=== PATIENT | male | born 1980 | race Caucasian/White ===

== ENCOUNTER 2017-02-25 19:00 | Inpatient (IN) | payer OTHER ==
--- NOTE | ~2017-02-25 | HP ---
Unit #: [id number] #: [id number] Patient: THADDEUS BROWER [id number] [place] [address] [id number] I MR#: [id number] NAME: THADDEUS BROWER. ROOM: P184 Age: 36 Sex: M Admission Date: 02/26/2017 : 1980 Attending Physician: Christopher Herman M.D. Admitting Physician: Christopher Herman M.D. Primary Care Physician: Generic Doctor Not In System HISTORY AND PHYSICAL HISTORY OF PRESENT ILLNESS Thaddeus is a 36-year-old male admitted on 02/26/2017 to [facility] for detox from heroin. PAST MEDICAL HISTORY Hepatitis C PAST SURGICAL HISTORY None. SOCIAL HISTORY Smokes one pack of cigarettes daily. Denies alcohol use and does report daily use of heroin. He is currently single and homeless. FAMILY HISTORY Noncontributory. REVIEW OF SYSTEMS CONSTITUTIONAL: No fever or chills. HEENT: Denies any sore throat, ear pain or runny nose. CARDIOVASCULAR: Denies chest pain, irregular heart rhythm or palpitations. CHEST: Denies shortness of breath or cough. No hemoptysis. GASTROINTESTINAL: Denies nausea, vomiting, diarrhea or chronic constipation. ENDOCRINE: Denies history of increased thirst or urination. No recent significant weight loss or gain. GENITOURINARY: Denies dysuria, frequency, or hematuria. SKIN: Denies any rashes. HEMATOLOGIC: Denies history of increased bleeding or bruising. MUSCULOSKELETAL: Denies any hot, swollen joints. No generalized muscle pain. NEUROLOGIC: Denies problems with vision or speech. No frequent, severe headaches. No numbness, tingling or weakness in any extremities. Denies loss of bladder or bowel control. CURRENT MEDICATIONS None. ALLERGIES Bactrim and codeine. Unit #: [id number] #: [id number] Patient: THADDEUS BROWER PHYSICAL EXAMINATION GENERAL: Alert, oriented, in no acute distress. VITAL SIGNS: Blood pressure 86/64, heart rate 81. HEIGHT: 5 foot 9 inches. WEIGHT: 130 pounds. SKIN: Warm and dry without rash or lesion. HEENT: Normocephalic. TMs not viewed. Oral and nasal passages clear. Conjunctivae clear. PERRLA. EOMs intact. NECK: Supple without lymphadenopathy or thyromegaly. HEART: Regular rate and rhythm without murmur. LUNGS: Clear. ABDOMEN: Soft, nontender, without masses or hepatosplenomegaly. : Not done. EXTREMITIES: No evidence of cyanosis, clubbing or edema. Moves all without focal deficit. NEUROLOGICAL: Grossly within normal limits. Cranial Nerves: II: Visual brady are intact. III, IV AND : Extraocular movements are intact. Pupils are equal, round and reactive to light. V: Facial sensation is grossly normal. VII: Facial movements and expression are normal. VIII: Auditory acuity grossly intact. IX, X: Uvula is midline. Phonation is normal. XI: Patient shrugs shoulders and turns head normally. XII: Tongue protrudes in the midline. Sensory and Motor Function: Sensory and motor sensation is grossly normal. Motor: moves all extremities well. Coordination: Gait is normal. Deep Tendon Reflexes: Intact. IMPRESSION 1. Psychiatric admission. 2. Hepatitis C. RECOMMENDATIONS Psychiatric, per psychiatrist. MEDICAL: I see no contraindications to participating in facility's activities. MEDICAL PROGNOSIS Good. MEDICAL CONDITION Stable. Dictated by... Dorothy Parra/akanksha TD: 02/26/2017 23:41 JOB #: [id number] Unit #: [id number] #: [id number] Patient: THADDEUS BROWER HISTORY AND PHYSICAL Page 1 of 1 X KAILASH VALENTIN APRN HISTORY AND PHYSICAL
--- NOTE | ~2017-02-25 | DS ---
Unit #: [id number] #: [id number] Patient: ANTONIO BROWER [id number] [facility] [address] [place] [address] [id number] MR#: [id number] NAME: ANTONIO BROWER. ROOM: P184 Age: 36 Sex: M Admission Date: 02/26/2017 : 1980 Discharge Date: 02/27/2017 Attending Physician: Christopher Herman M.D. Primary Care Physician: Generic Doctor Not In System DISCHARGE SUMMARY REASON FOR ADMISSION Detox from heroin. DIAGNOSTIC STUDIES LABORATORY RESULTS: Unremarkable. HOSPITAL COURSE The patient was admitted to inpatient unit on 02/26/2017 and discharged on 02/27/2017. The patient was treated on the inpatient unit with group therapy, individual therapy, medication management, detox protocol, and detox monitoring. The patient responded well with the above modalities of treatment. Subsequently, the patient was discharged. DISCHARGE MEDICATIONS None. DISCHARGE DIAGNOSES Psychiatric: Opioid use disorder, severe, F11.20; mood disorder, not otherwise specified, F32.9. Secondary diagnosis: Deferred. Medical diagnosis: None. Stressors: Psychosocial stressors. DISCHARGE INSTRUCTIONS The patient to follow up in outpatient clinic as per nursing home social worker. CONDITION ON DISCHARGE The patient was pleasant and cooperative. Denied any psychotic symptom or any suicidal ideation. PROGNOSIS Guarded. DIET AND ACTIVITY As tolerated. Dictated by... Christopher Herman M.D. Unit #: [id number] #: [id number] Patient: ANTONIO BROWER SZC/modl TD: 02/28/2017 05:23 JOB #: [id number] DISCHARGE SUMMARY Page 1 of 1 X Christopher Herman MD X DISCHARGE SUMMARY
--- NOTE | ~2017-02-25 | PA ---
Unit #: [id number] #: [id number] Patient: ANTONIO BROWER [id number] [facility] [address] [place] [address] [id number] I MR#: [id number] NAME: ANTONIO BROWER. ROOM: P184 Age: 36 Sex: M Admission Date: 02/26/2017 : 1980 Date of Assessment: 02/26/2017 Attending Physician: Christopher Herman M.D. Admitting Physician: Christopher Herman M.D. Primary Care Physician: Generic Doctor Not In System PSYCHIATRIC ASSESSMENT INFORMANTS The patient reliability, fair informant and chart reliability, good. CHIEF COMPLAINT Withdrawals from heroin. HISTORY OF PRESENT ILLNESS Mr. Travis is a 36-year-old, presented with opioid withdrawals. The patient reported using 1 to 1.5 g of heroin daily by IV, scored 20 on COWS score. Denied any suicidal or homicidal ideation. Denied any psychotic symptom. The patient reported tobacco use, age of onset 8 and opioid use recently, 1 to 1.5 g daily. The patient reported sober for 16 hours. The patient reported no history of blackout. History of IV drug use, history of withdrawal symptoms. The patient presented with diarrhea, irritability, restlessness, poor concentration, sleep problem, depressed mood, and tremors. The patient needed inpatient admission at this time for psychiatric stabilization. PAST PSYCHIATRIC HISTORY Unremarkable for any previous treatment. FAMILY HISTORY AND SOCIAL HISTORY The patient currently homeless. Poor support system. No history of abuse. MEDICAL HISTORY Remarkable for history of hepatitis C. MEDICATION HISTORY None. ALLERGIES No known drug allergies. SUBSTANCE ABUSE HISTORY Please see above. REVIEW OF SYSTEMS HEENT: Eyes, clear. Ears, nose, mouth, and throat; clear. CARDIOVASCULAR: Unremarkable. RESPIRATORY: Unremarkable. GI: Unremarkable. : Unremarkable. SKIN: Unremarkable. Unit #: [id number] #: [id number] Patient: ANTONIO BROWER LYMPH NODE: Unremarkable. NEUROLOGIC: Unremarkable. ENDOCRINE: Unremarkable. HEMATOLOGIC: Unremarkable. ALLERGIC/IMMUNOLOGIC: Unremarkable. MUSCULOSKELETAL: Muscle strength and tone, no atrophy or abnormal movement. Gait normal. MENTAL STATUS EXAMINATION CONSTITUTIONAL: Measurement of vital signs; temperature 98.8, heart rate 82, respiratory rate 18, and blood pressure 104/62. Height 5 feet 9 inches and weight 130 pounds. GENERAL APPEARANCE: The patient dressed casually. The patient did not show any facial deformity. PSYCHIATRIC EXAMINATION Description of speech, regular rate. Description of thought process, goal directed. Description of association, intact. Description of abnormal psychotic thinking; the patient denied any hallucination or delusions, but mood lability. Description of the patient's judgment: Concerning everyday activity, poor. Social situation, poor. Concerning psychiatric condition, poor. Complete mental status examination; oriented in time, place, and person. Recent and remote memory, fair. Attention span and concentration, fair. Language, able to name object and repeat phrases. Fund of knowledge, aware of current event and passive vocabulary intact. Mood and affect, sad and dysphoric. Insight and judgment, fair to poor. ASSETS AND LIABILITIES Assets, the patient is articulate and able to take care of his ADL. Liability, history of substance abuse. ADMITTING DIAGNOSES Psychiatric: Opioid use disorder, severe, F11.20 and mood disorder, not otherwise specified, F32.9. Secondary diagnosis: Deferred. Medical diagnosis: None. Stressors: Psychosocial stressors. PSYCHIATRIC PLAN AND TREATMENT GOAL AND DISCHARGE PLAN 1. Advised to admit the patient on the inpatient unit. Provide safe, supportive, and structured environment. 2. Ordered labs; CBC, CMP, UA, and UDS. 3. Detox protocol and detox monitoring. 4. The patient to attend all the programing on the inpatient unit. If needed, consider further adjustment of medication. TREATMENT GOAL To attain euthymic mood, gain insight into his problem, and learn coping skills. DISCHARGE PLAN Plan to stabilize the patient and consider followup in outpatient program. Unit #: [id number] #: [id number] Patient: ANTONIO BROWER ESTIMATED LENGTH OF STAY 3 to 5 days. Dictated by... Claudio Lizama/tanvir TD: 02/26/2017 14:41 JOB #: [id number] PSYCHIATRIC ASSESSMENT Page 1 of 1 X Christopher Herman MD PSYCHIATRIC ASSESSMENT
[2017-02-26 11:57] LABS: BASOPHIL# 0.1 X10e3 (0-0.3); BASOPHIL% 1.1 % (0-2.5); EOSINOPHIL# 0.2 X10e3 (0-0.7); EOSINOPHIL% 2.9 % (0.0-7.0); HEMATOCRIT 41.7 % (38.0-50.0); HEMOGLOBIN 13.7 gm/dL (13.0-16.0); LYMPHOCYTE# 2.3 X10e3 (1.0-3.5); LYMPHOCYTE% 33.5 % (17.0-45.0); MEAN CELL VOLUME 87.3 FL (83-96); MEAN CORPUSCULAR HEMOGLOBIN 28.6 PG (28-34); MEAN CORPUSCULAR HGB CONC 32.8 g/dL (30-36); MEAN PLATELET VOLUME 9.7 FL (6.5-11.5); MONOCYTE# 0.6 X10e3 (0-1.0); NEUTROPHIL# 3.7 X10e3 (1.5-7.1); NEUTROPHIL% 53.5 % (40-75); PLATELET COUNT 254 X10e3 (140-420); RED BLOOD COUNT 4.78 X10e (3.90-5.60)
[2017-02-26 12:01] LABS: DIFF IND NO
[2017-02-26 12:34] LABS: ALBUMIN SERUM 3.6 g/dL (3.5-5.0); BILIRUBIN,TOTAL 1.1 mg/dL (0.2-2.0); CALCIUM SERUM 8.7 mg/dL (8.4-10.2); GLOM FILT RATE Estimated 95.1 mL/min (>60); POTASSIUM 4.1 mmol/L (3.5-5.1); PROTEIN TOTAL SERUM 6.9 g/dL (6.0-8.3)
== END 2017-02-27 11:30 | disposition home or self-care (01) | DRG 897 ==
LOC: P1E 02-26 00:11
PROVIDERS: Psychiatry & Neurology Psychiatry
PROC: HZ2ZZZZ Detoxification Services for Substance Abuse Treatment (ICD-10-PCS; principal; 2017-02-26)
DX: F11.20 Opioid dependence, uncomplicated (principal); F39 Unspecified mood [affective] disorder; B19.20 Unspecified viral hepatitis C without hepatic coma; F17.210 Nicotine dependence, cigarettes, uncomplicated; Z59.0 Homelessness; Z88.5 Allergy status to narcotic agent; Z88.6 Allergy status to analgesic agent
CPT/HCPCS: 80053; 85025; 86592